=== PATIENT | female | born 2000 | race African-American/Black ===

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

== ENCOUNTER 2022-01-13 19:06 | Emergency (ER) | payer OTHER ==
[2022-01-13 19:19] VITALS: TEMP 98.3; BMI 19.1
[2022-01-14 00:35] LABS: BASO % 0.9 % (0-2.0); EOS % 0.7 % (0-4.5); HEMATOCRIT 36.2 % (32.4-45.2); HEMOGLOBIN 12.5 GM/dL (10.7-15.3); LYMPH % 47.2 % (8-40); MCH 31.3 pg (25.7-33.7); MCHC 34.6 g/dl (32.0-36.0); MEAN CELL VOLUME 90.7 fl (80-96); MEAN PLT VOLUME 6.9 fl (7.5-11.1); NEUT % 43.2 % (42.8-82.8); PLATELET COUNT 321 10^3/uL (134-434); RDW 12.9 % (11.6-15.6); WHITE BLOOD COUNT 4.4 K/mm3 (4.0-10.0)
[2022-01-14 00:58] LABS: CALCIUM 9.2 mg/dL (8.5-10.1)
[2022-01-14 00:59] LABS: ALBUMIN 4.1 g/dl (3.4-5.0); BLOOD UREA NITROGEN 10.8 mg/dL (7-18)
[2022-01-14 01:02] LABS: CREATININE 0.7 mg/dL (0.55-1.3); TOT PROT 7.4 g/dl (6.4-8.2)
[2022-01-14 01:48] VITALS: BP 121/63; PULSE 80
== END 2022-01-14 02:02 | disposition home or self-care (01) ==
LOC: JER 19:06
DX: N93.9 Abnormal uterine and vaginal bleeding, unspecified (principal)
CPT/HCPCS: 36415; 80053; 84703; 85025; 86850; 86900; 86901; 99283-25

== ENCOUNTER 2024-01-13 17:28 | Emergency (ER) | payer OTHER ==
[2024-01-13 17:35] VITALS: BMI 23.0
[2024-01-13] MEDS ORDERED: ONDANSETRON 4 MG/2 ML VIAL ONE (18:45)
[2024-01-13] MEDS ORDERED: KETOROLAC TROMETHAMINE 30 MG/1 ML VIAL ONE (18:45)
[2024-01-13 19:15] LABS: BASO % 0.3 % (0-2.0); EOS % 0.3 % (0-4.5); HEMATOCRIT 39.5 % (32.4-45.2); HEMOGLOBIN 13.6 GM/dL (10.7-15.3); LYMPH % 9.9 % (8-40); MCH 31.4 pg (25.7-33.7); MCHC 34.4 g/dl (32.0-36.0); MEAN CELL VOLUME 91.3 fl (80-96); MEAN PLT VOLUME 7.3 fl (7.5-11.1); MONO % 4.8 % (3.8-10.2); NEUT % 84.7 % (42.8-82.8); PLATELET COUNT 345 10^3/uL (134-434); RBC 4.33 M/mm3 (3.60-5.2); RDW 13.6 % (11.6-15.6); WHITE BLOOD COUNT 8.4 K/mm3 (4.0-10.0)
[2024-01-13 19:35] LABS: POTASSIUM 5.3 mmol/L (3.5-5.1)
[2024-01-13 19:37] LABS: CALCIUM 9.6 mg/dL (8.5-10.1)
[2024-01-13 19:38] LABS: ALBUMIN 3.8 g/dl (3.4-5.0); BLOOD UREA NITROGEN 11.3 mg/dL (7-18)
[2024-01-13] MEDS: ONDANSETRON 4 MG/2 ML VIAL IVPUSH ONE (19:40)
[2024-01-13] MEDS: KETOROLAC TROMETHAMINE 30 MG/1 ML VIAL IVPB ONE (19:40)
[2024-01-13] MEDS: SODIUM CHLORIDE 0.9% 500 ML INFUS.BAG IV ONE (19:40)
[2024-01-13 19:41] LABS: CREATININE 0.7 mg/dL (0.55-1.3)
[2024-01-13 19:42] LABS: TOT PROT 7.7 g/dl (6.4-8.2)
[2024-01-13 19:43] LABS: BILIRUBIN,TOTAL 0.8 mg/dL (0.2-1)
[2024-01-13 20:12] LABS: URINE COLOR RED
[2024-01-13 20:13] LABS: URINE APPEARANCE CLOUDY; URINE BILIRUBIN NEGATIVE (NEGATIVE); URINE GLUCOSE (UA) NEGATIVE (NEGATIVE); URINE UROBILINOGEN 0.2 mg/dL (0.2-1.0)
[2024-01-13 20:14] LABS: URINE PROTEIN TRACE (NEGATIVE)
[2024-01-13 20:16] LABS: URINE RBC >100 /uL (0-23.9); URINE WBC 0-5 /uL (0-25.8)
[2024-01-13 20:17] LABS: EPI CELLS FEW /uL (0-25.1); URINE BACTERIA FEW /uL (0-1359)
[2024-01-13 22:57] VITALS: BP 110/65; PULSE 78; RESP 16; TEMP 98.1
== END 2024-01-13 22:57 | disposition home or self-care (01) ==
LOC: JER 17:28
PROC: 3E033GC Introduction of Other Therapeutic Substance into Peripheral Vein, Percutaneous Approach (ICD-10-PCS; principal; 2024-01-13)
PROC: 3E0333Z Introduction of Anti-inflammatory into Peripheral Vein, Percutaneous Approach (ICD-10-PCS; 2024-01-13)
DX: Z33.2 Encounter for elective termination of pregnancy (principal)
CPT/HCPCS: 36415; 76817-TC; 80053; 81003; 84702; 84703; 85025; 87086; 99284-25

== ENCOUNTER 2024-11-14 15:17 | Emergency (ER) | payer OTHER ==
[2024-11-14 15:36] VITALS: BP 113/58; PULSE 100; RESP 18; TEMP 98.4; BMI 22.1
[2024-11-14 17:49] LABS: ABSOLUTE IMMATURE GRANULOCYTES 0.01 x10^3/uL (0.0-0.031); BASOPHILS # 0.03 x10^3/uL (0.01-0.08); EOSINOPHIL % 0.5 % (0.7-5.8); EOSINOPHILS # 0.03 x10^3/uL (0.04-0.36); HEMATOCRIT 36.6 % (34.1-44.9); HEMOGLOBIN 12.3 g/dL (11.2-15.7); MCHC 33.6 g/dl (32.2-35.5); MEAN CELL VOLUME 90.1 fl (79.4-94.8); MEAN PLT VOLUME 8.8 fl (9.4-12.3); MONOCYTE # 0.25 x10^3/uL (0.24-0.86); MONOCYTE % 4.3 % (4.7-12.5); PLATELET COUNT 292 x10^3/uL (182-369); RDW 12.8 % (12.1-16.5)
[2024-11-14 17:50] LABS: URINE APPEARANCE CLEAR; URINE BILIRUBIN NEGATIVE (NEGATIVE); URINE COLOR YELLOW; URINE GLUCOSE (UA) NEGATIVE (NEGATIVE); URINE KETONE TRACE (NEGATIVE); URINE LEUK ESTERASE NEGATIVE (NEGATIVE); URINE NITRITE NEGATIVE (NEGATIVE); URINE PROTEIN TRACE (NEGATIVE)
[2024-11-14 18:23] LABS: POTASSIUM 3.9 mmol/L (3.5-5.1)
[2024-11-14 18:26] LABS: CALCIUM 9.4 mg/dL (8.5-10.1)
[2024-11-14 18:27] LABS: ALBUMIN 3.7 g/dl (3.4-5.0); BLOOD UREA NITROGEN 7.6 mg/dL (7-18)
[2024-11-14 18:30] LABS: CREATININE 0.6 mg/dL (0.55-1.3)
[2024-11-14 18:31] LABS: BILIRUBIN,TOTAL 0.8 mg/dL (0.2-1); TOT PROT 7.1 g/dl (6.4-8.2)
== END 2024-11-14 21:33 | disposition left against medical advice (07) ==
LOC: JER 15:17
DX: O20.9 Hemorrhage in early pregnancy, unspecified (principal); Z3A.15 15 weeks gestation of pregnancy
CPT/HCPCS: 36415; 76815-TC; 80053; 81003; 84702; 85025; 86850; 86900; 86901; 87086; 99284-25